=== PATIENT | female | born 1990 | race Caucasian/White ===

== ENCOUNTER 2017-05-15 03:59 | Emergency (ER) | payer OTHER | END 2017-05-15 06:20 | disposition home or self-care (01) | LOC: FTE 03:59 | DX: G47.00 Insomnia, unspecified (principal) | CPT/HCPCS: 99283 ==

== ENCOUNTER 2017-05-15 11:57 | Emergency (ER) | payer OTHER ==
[2017-05-15] MEDS: KETOROLAC 60 MG INJ IM (13:49)
== END 2017-05-15 14:42 | disposition home or self-care (01) ==
LOC: FTE 11:57
DX: R51 Headache (principal)
CPT/HCPCS: 81025; 96372; 99284-25

== ENCOUNTER 2017-07-19 11:37 | Emergency (ER) | payer OTHER | END 2017-07-19 13:35 | disposition home or self-care (01) | LOC: FTE 11:37 | DX: K21.0 Gastro-esophageal reflux disease with esophagitis (principal); F41.9 Anxiety disorder, unspecified; F51.02 Adjustment insomnia | CPT/HCPCS: 99283; Z7502 ==

== ENCOUNTER 2017-09-06 23:30 | Emergency (ER) | payer OTHER ==
[2017-09-07] MEDS: METOCLOPRAMIDE 10 MG TAB PO (01:24)
[2017-09-07] MEDS: DIPHENHYDRAMINE 50 MG CAP PO (01:24)
[2017-09-07] MEDS: ACETAMINOPHEN 500 MG TAB PO (01:24)
== END 2017-09-07 01:55 | disposition home or self-care (01) ==
LOC: FTE 23:30
DX: O99.89 Other specified diseases and conditions complicating pregnancy, childbirth and the puerperium (principal); R51 Headache; Z3A.00 Weeks of gestation of pregnancy not specified
CPT/HCPCS: 99283; Z7502

== ENCOUNTER 2018-04-01 01:46 | Inpatient (IN) | payer OTHER ==
[2018-04-01] MEDS ORDERED: BUTORPHANOL 2 MG INJ IV (02:30)
[2018-04-01] MEDS ORDERED: OXYTOCIN 30 UNITS/LR 500 ML IV ×2 (02:30→11:30)
[2018-04-01] MEDS ORDERED: METHYLERGONOVINE 0.2 MG INJ IM (02:30)
[2018-04-01] MEDS ORDERED: CARBOPROST 250 MCG INJ IM ×2 (02:30→11:30)
[2018-04-01] MEDS ORDERED: MISOPROSTOL 200 MCG TAB PR ×2 (02:30→11:30)
[2018-04-01 02:55] LABS: ADD MAN DIFF? NO
[2018-04-01 03:05] LABS: BASOPHILS % 0.2 % (0.0-2.0); EOSINOPHILS % 0.2 % (0.0-7.0); HEMATOCRIT 39.3 % (37.0-47.0); HEMOGLOBIN 12.8 g/dl (12.0-16.0); LYMPHOCYTES # 2.2 10^3/ul (0.8-2.9); LYMPHOCYTES % 17.8 % (15.0-51.0); MEAN CORPUSCULAR HEMOGLOBIN 27.9 pg (29.0-33.0); MEAN CORPUSCULAR HGB CONC 32.6 g/dl (32.0-37.0); MEAN CORPUSCULAR VOLUME 85.8 fl (82.0-101.0); MEAN PLATELET VOLUME 11.3 fl (7.4-10.4); MONOCYTE # 0.9 10^3/ul (0.3-0.9); MONOCYTES % 7.6 % (0.0-11.0); NEUTROPHIL # 8.9 10^3/ul (1.6-7.5); NEUTROPHILS % 73.7 % (39.0-77.0); PLATELET COUNT 228 10^3/UL (140-415); RED BLOOD COUNT 4.58 10^6/ul (4.20-5.40); RED CELL DISTRIBUTION WIDTH 14.3 % (11.5-14.5)
[2018-04-01 03:05] LABS: WHITE BLOOD COUNT 12.2 10^3/ul (4.8-10.8)
[2018-04-01] MEDS: LACTATED RINGER'S 1,000 ML IV ×4 (03:29→18:25)
[2018-04-01 03:54] LABS: INR 0.89; PROTIME 12.1 Sec (11.9-14.9); PT RATIO 0.9
[2018-04-01 03:55] LABS: PARTIAL THROMBOPLASTIN TIME 29.6 Sec (23.0-35.0)
[2018-04-01 04:29] LABS: HEPATITIS B SURFACE ANTIGEN NEGATIVE (NEGATIVE)
[2018-04-01] MEDS ORDERED: NALOXONE (0.4 MG/ML) INJ IV (05:30)
[2018-04-01] MEDS ORDERED: HYDROmorphONE 0.5 MG/0.5 ML SYG IV ×2 (05:30)
[2018-04-01] MEDS ORDERED: ZOLPIDEM 5 MG TAB PO ×2 (05:30→11:30)
[2018-04-01] MEDS ORDERED: DIPHENHYDRAMINE 50 MG INJ IV (05:30)
[2018-04-01] MEDS ORDERED: FENTAnyl 2MCG/ML-ROPIV 0.2% 100 ML BAG EPI (05:30)
[2018-04-01] MEDS ORDERED: ONDANSETRON 4 MG INJ IV ×2 (05:30→11:30)
[2018-04-01] MEDS ORDERED: KETOROLAC 30 MG INJ IV (05:30)
[2018-04-01] MEDS: LIDOCAINE 1% (MPF) 30 ML INJ INJ (09:23)
[2018-04-01] MEDS: OXYTOCIN 30 UNITS/LR 500 ML IV ×3 (09:24→11:29)
[2018-04-01] MEDS ORDERED: HYDROCODONE/APAP (5/325) TAB PO (11:30)
[2018-04-01] MEDS ORDERED: ACET/BUTAL/CAFF TAB PO (11:30)
[2018-04-01] MEDS ORDERED: WITCH HAZEL/GLYCERIN PAD PR (11:30)
[2018-04-01] MEDS ORDERED: NACL 0.9% 3 ML SYG IV (11:30)
[2018-04-01] MEDS ORDERED: METOCLOPRAMIDE 10 MG TAB PO (11:30)
[2018-04-01] MEDS ORDERED: ACETAMINOPHEN 325 MG TAB PO (11:30)
[2018-04-01] MEDS ORDERED: IBUPROFEN 600 MG TAB PO (11:30)
[2018-04-01] MEDS ORDERED: DIPHENHYDRAMINE 25 MG CAP PO (11:30)
[2018-04-01] MEDS: SENNA/DOCUSATE NA (8.6MG/50MG) TAB PO ×2 (12:38→21:15)
[2018-04-01] MEDS: IBUPROFEN 600 MG TAB PO ×2 (12:39→17:56)
[2018-04-01] MEDS: LANOLIN HPA 1 PKT TOP (12:39)
[2018-04-01 15:11] LABS: RAPID PLASMA REAGIN NONREACTIVE (NR)
[2018-04-02] MEDS: IBUPROFEN 600 MG TAB PO ×5 (00:11→23:52)
[2018-04-02] MEDS: LACTATED RINGER'S 1,000 ML IV ×2 (02:25→10:25)
[2018-04-02] MEDS: MEASLES,MUMPS,RUBELLA VACCINE INJ SC* (09:22)
[2018-04-02] MEDS: SENNA/DOCUSATE NA (8.6MG/50MG) TAB PO ×2 (09:37→21:42)
[2018-04-02 10:32] LABS: HEMATOCRIT 33.4 % (37.0-47.0)
[2018-04-03] MEDS: IBUPROFEN 600 MG TAB PO (05:36)
[2018-04-03] MEDS: VARICELLA VACCINE LIVE/PF 1,350 UNIT/0.5 ML ML SC* (07:28)
[2018-04-03] MEDS: SENNA/DOCUSATE NA (8.6MG/50MG) TAB PO (09:16)
[2018-04-03] MEDS: DIPHTH/TET/ACEL PERTUSS (ADULT) 0.5 ML VIAL IM* (09:17)
[2018-04-04] MEDS ORDERED: IBUPROFEN 600 MG TAB PO ×2 (06:00)
== END 2018-04-03 11:55 | disposition home or self-care (01) | DRG 807 ==
LOC: OBT 01:46 → L-D 01:49 → OBT 02:24 → L-D 02:24 → PP1 10:43
PROVIDERS: Obstetrics & Gynecology
PROC: 10E0XZZ Delivery of Products of Conception, External Approach (ICD-10-PCS; principal; 2018-04-01)
PROC: 0HQ9XZZ Repair Perineum Skin, External Approach (ICD-10-PCS; 2018-04-01)
DX: O99.344 Other mental disorders complicating childbirth (principal); Z37.0 Single live birth; F32.9 Major depressive disorder, single episode, unspecified; F41.9 Anxiety disorder, unspecified; O99.62 Diseases of the digestive system complicating childbirth; K21.9 Gastro-esophageal reflux disease without esophagitis; O77.0 Labor and delivery complicated by meconium in amniotic fluid; O70.0 First degree perineal laceration during delivery; Z3A.38 38 weeks gestation of pregnancy; Z86.32 Personal history of gestational diabetes; Z23 Encounter for immunization
CPT/HCPCS: 62319; 85014; 85018; 85025; 85610; 85730; 86592; 86850; 86900; 86901; 87340; 88307; 90686; 90715; 90716; 99464